=== PATIENT | female | born 1970 | race Caucasian/White ===

== ENCOUNTER 2021-07-04 22:07 | Inpatient (IN) | payer BC ==
[2021-07-04] MEDS ORDERED: Fentanyl CADD 100 ML IV SCH (22:15)
[2021-07-04 22:28] LABS: Actual Bicarbonate (HCO3a) 22.6 mEq/L (22-28); Analyzer IN Cardio ER; Base Excess (BEa) -4.3 mEq/L (-2.0 to +3.0); CO2 Tension 48.2 mmHg (35.0-45.0); Calcium, Ionized (arterial) 1.19 mmol/L (1.12-1.30); Carboxyhemoglobin (COHb) 0.1 gm% (0.0-3.0); Hemoglobin (Hb) 14.5 g/dL (12.0-16.0); O2 Tension (PaO2), arterial 410.8 mmHg (80.0-100.0); Potassium - ABG Lab 2.77 mmol/L (3.70-5.30); pH, Arterial 7.29 (7.35-7.45)
[2021-07-04 22:29] LABS: #Eosinphils 0.1 thou/uL (0.0-0.7); #Lymphocytes 2.4 thou/uL (1.20-3.40); #Monocytes 0.6 thou/uL (0.11-0.59); #Neutrophils 5.7 thou/uL (1.40-6.50); %Basophils 0.5 % (0.0-1.0); %Eosinophils 1.3 % (0.0-10.0); %Lymphocytes 26.9 % (21.0-51.0); %Monocytes 6.9 % (0.0-10.0); %Neutrophils 64.4 % (42.0-75.0); Hemoglobin 14.3 g/dL (12.0-16.0); Mean Corpuscular HGB CONC 33.4 g/dL (32.0-36.0); Mean Corpuscular Hemoglobin 33.9 pg (27.0-31.0); Mean Platelet Volume 7.1 fL (7.4-10.4); Platelet Count 238 thou/uL (130-400); RBC Distribution Width 11.3 % (11.5-14.5); Red Blood Cell (RBC) Count 4.22 mill/uL (4.20-5.40); White Blood Cell (WBC) Count 8.9 thou/uL (4.8-10.8)
[2021-07-04 22:33] LABS: Puncture Site RRA
[2021-07-04 22:37] LABS: BHCG - Serum Negative (NEGATIVE); Pregs Control Background? CLEAR/WHITE (CLR/WHITE); Pregs Control Bar Appear? YES (CONTROL BAR)
[2021-07-04 22:41] LABS: Prothrombin Time 13.1 sec (12.0-14.7)
[2021-07-04 22:43] LABS: PTT 25.1 sec (22.9-36.1)
[2021-07-04 22:48] LABS: ALT (SGPT) 24 U/L (8-55); AST (SGOT) 26 U/L (5-34); Acetaminophen Less than 6.0 mcg/mL (10.0-30.0); Alcohol 345 mg/dL (Less than 10); Alkaline Phosphatase 54 U/L (40-110); Anion Gap 15 mmol/L (10-20); BUN (Urea Nitrogen) 11 mg/dL (9.8-20.1); Bilirubin, Total 0.4 mg/dL (0.2-1.2); Calc. Creatinine Clearance 0 mL/min (70-130); Calcium 9.3 mg/dL (7.8-10.44); Carbon Dioxide 20 mmol/L (22-29); Chloride 105 mmol/L (98-107); Globulin 2.3 g/dL (2.4-3.5); Glucose 147 mg/dL (70-105); Lipase 31 U/L (8-78); Protein, Total 6.3 g/dL (6.0-8.3); Salicylate Less than 8.0 mg/dL (15.0-30.0); Sodium 137 mmol/L (136-145)
[2021-07-04 22:53] LABS: Bilirubin Negative (Negative); Blood, Urine Negative (Negative); Clarity Clear (Clear); Glucose, Urine (Dipstick) Normal (Negative); Ketone, Urine Negative (Negative); Leukocyte Negative Leu/uL (Negative); Nitrite Negative (Negative); Protein, Urine (Dipstick) Negative (Neg-Trace); Specific Gravity, Urine 1.013 (1.002-1.036); Urobilinogen Normal mg/dL (Less than 2); pH, Urine 5.5 (5.0-9.0)
[2021-07-04 22:57] LABS: Potassium 2.9 mmol/L (3.5-5.1)
[2021-07-04 23:02] LABS: Amphetamine Not Detected (NotDetected); Barbiturates Screen Not Detected (NotDetected); Benzodiazepine Screen Not Detected (NotDetected); Cocaine Metabolite Screen Not Detected (NotDetected); Methadone Not Detected (NotDetected); Methamphetamine Not Detected (NotDetected); Opiate Screen Not Detected (NotDetected); Oxycodone Screen Not Detected (NotDetected); Phencyclidine (PCP) Not Detected (NotDetected); THC/Cannabinoid Screen Not Detected (NotDetected); Tricyclic Screen Not Detected (NotDetected)
[2021-07-04] MEDS ORDERED: DOPamine 400 MG/D5W 250 ML 250 ML ONE (23:13)
[2021-07-04 23:35] LABS: SARS-CoV-2 NAA Rapid Test Not Detected (NotDetected)
[2021-07-05] MEDS ORDERED: Folic Acid 1 MG, Multivitamins, Adult 10 ML in Dextrose 5 %-0.45 % NaCl 1,000 ML IV SCH (00:15)
[2021-07-05] MEDS ORDERED: Thiamine HCl 200 MG/2 ML VIAL SLOW IVP SCH ×3 (00:15→23:59)
[2021-07-05] MEDS ORDERED: Ondansetron PF 4 MG/2 ML Vial IVP PRN (00:45)
[2021-07-05] MEDS ORDERED: Acetaminophen 325 MG TAB PO PRN (00:45)
[2021-07-05] MEDS ORDERED: Electrolyte Replacement Protocol 1 EACH IVPB PRN (00:47)
[2021-07-05 00:54] LABS: Magnesium 1.8 mg/dL (1.6-2.6)
[2021-07-05] MEDS ORDERED: Fentanyl BOLUS 250 ML IVPB PRN (01:00)
[2021-07-05] MEDS ORDERED: Propofol BOLUS 1,000 MG/100 ML VIAL IV PRN (01:00)
[2021-07-05] MEDS ORDERED: Lorazepam 2 MG/ML VIAL SLOW IVP PRN (01:00)
[2021-07-05] MEDS ORDERED: Propofol 1,000 MG/100 ML VIAL IV PRN (01:00)
[2021-07-05] MEDS ORDERED: Morphine 2 MG/ML VIAL SLOW IVP PRN (01:00)
[2021-07-05] MEDS ORDERED: Ventilator Sedation Protocol 1 EACH FS SCH (01:00)
[2021-07-05 01:12] LABS: Thyroid Stimulating Hormone 2.4647 uIU/mL (0.35-4.94)
[2021-07-05 01:37] VITALS: BMI 30.4
[2021-07-05] MEDS: D5 1/2 NS w/40 mEq KCL 1,000 ML IV SCH ×2 (01:50→10:27)
[2021-07-05] MEDS ORDERED: Magnesium 2 GM/50 ML 2 GM in Premix Bag 1 BAG IVPB SCH (02:00)
[2021-07-05] MEDS: Potassium Chloride 40 MEQ in Premix Bag 1 BAG IVPB SCH ×2 (02:11→05:48)
[2021-07-05] MEDS ORDERED: DOPamine 400 MG/D5W 250 ML 250 ML IVPB SCH (02:45)
[2021-07-05 03:40] LABS: #Basophils 0.1 thou/uL (0.0-0.2); #Lymphocytes 1.3 thou/uL (1.20-3.40); #Monocytes 0.8 thou/uL (0.11-0.59); %Basophils 0.5 % (0.0-1.0); %Eosinophils 0.1 % (0.0-10.0); %Lymphocytes 9.5 % (21.0-51.0); %Monocytes 6.2 % (0.0-10.0); %Neutrophils 83.8 % (42.0-75.0); Hemoglobin 14.4 g/dL (12.0-16.0); Mean Corpuscular HGB CONC 34.8 g/dL (32.0-36.0); Mean Corpuscular Hemoglobin 34.1 pg (27.0-31.0); Mean Corpuscular Volume 98.1 fL (78.0-98.0); Mean Platelet Volume 7.1 fL (7.4-10.4); Platelet Count 268 thou/uL (130-400); RBC Distribution Width 11.1 % (11.5-14.5); Red Blood Cell (RBC) Count 4.22 mill/uL (4.20-5.40); White Blood Cell (WBC) Count 13.2 thou/uL (4.8-10.8)
[2021-07-05 03:42] LABS: Lactic Acid 2.6 mmol/L (0.5-2.2)
[2021-07-05 03:43] LABS: ALT (SGPT) 37 U/L (8-55); AST (SGOT) 53 U/L (5-34); Albumin 3.9 g/dL (3.5-5.0); Alkaline Phosphatase 47 U/L (40-110); Anion Gap 14 mmol/L (10-20); BUN (Urea Nitrogen) 10 mg/dL (9.8-20.1); Bilirubin, Total 0.6 mg/dL (0.2-1.2); Calc. Creatinine Clearance 113 mL/min (70-130); Calcium 9.1 mg/dL (7.8-10.44); Carbon Dioxide 24 mmol/L (22-29); Chloride 102 mmol/L (98-107); Globulin 2.5 g/dL (2.4-3.5); Glucose 203 mg/dL (70-105); Potassium 3.3 mmol/L (3.5-5.1); Protein, Total 6.4 g/dL (6.0-8.3); Sodium 137 mmol/L (136-145)
[2021-07-05 03:53] LABS: Free T4 (Free Thyroxine) 1.01 ng/dL (0.70-1.48)
[2021-07-05] MEDS ORDERED: Folic Acid 1 MG TAB PO SCH (09:00)
[2021-07-05] MEDS ORDERED: Enoxaparin Sodium 40 MG/0.4 ML SYRINGE SC SCH (09:00)
[2021-07-05] MEDS ORDERED: Multivitamins, Adult 10 ML, Folic Acid 1 MG in Dextrose 5 %-0.45 % NaCl 1,000 ML IV SCH (13:00)
[2021-07-05 13:41] VITALS: TEMP 98.2
== END 2021-07-05 17:30 | disposition home or self-care (01) | DRG 896 ==
LOC: ERS 22:07 → EDBD 07-05 00:08 → CCU 07-05 00:08
PROVIDERS: ADMIT Internal Medicine; ATTEND Internal Medicine
PROC: 0BH17EZ Insertion of Endotracheal Airway into Trachea, Via Natural or Artificial Opening (ICD-10-PCS; principal; 2021-07-04)
PROC: 5A1935Z Respiratory Ventilation, Less than 24 Consecutive Hours (ICD-10-PCS; 2021-07-04)
PROC: 3E033XZ Introduction of Vasopressor into Peripheral Vein, Percutaneous Approach (ICD-10-PCS; 2021-07-04)
DX: F10.129 Alcohol abuse with intoxication, unspecified (principal); R40.20 Unspecified coma; J96.01 Acute respiratory failure with hypoxia; J96.02 Acute respiratory failure with hypercapnia; G93.40 Encephalopathy, unspecified; E87.2 Acidosis; Z20.822 Contact with and (suspected) exposure to COVID-19; E87.6 Hypokalemia; F41.9 Anxiety disorder, unspecified; R00.1 Bradycardia, unspecified; Z90.710 Acquired absence of both cervix and uterus; Z79.899 Other long term (current) drug therapy; Z98.84 Bariatric surgery status; Z78.1 Physical restraint status; Y90.8 Blood alcohol level of 240 mg/100 ml or more
CPT/HCPCS: 36415; 36416; 36600; 70450; 71045; 80053; 80306; 80307; 81003; 82805; 83605; 83690; 83735; 84439; 84443; 84703; 85025; 85610; 85730; 87040; 93005; 93306; 94002; 94003; 94760; J1265; J1650; J2405; J3010; J3411; J3475; J3480; J7042; U0002